=== PATIENT | male | born 1975 | race Caucasian/White ===

== ENCOUNTER 2024-11-04 01:53 | Emergency (ER) | payer OTHER, SELFPAY ==
[2024-11-04] MEDS ORDERED: Ibuprofen 800 MG TAB ONE (02:10)
== END 2024-11-04 02:13 | disposition home or self-care (01) ==
LOC: MADERS 01:53
DX: H60.91 Unspecified otitis externa, right ear (principal); F17.210 Nicotine dependence, cigarettes, uncomplicated
CPT/HCPCS: 99282